=== PATIENT | male | born 1975 | race Caucasian/White ===

== ENCOUNTER 2020-04-11 11:36 | Observation (INO) | payer OTHER ==
[2020-04-11] MEDS ORDERED: Zofran 4 MG/2 ML VIAL IV ONE (12:01)
[2020-04-11] MEDS ORDERED: Hydromorphone 1 mg/ml Ampule IV ONE ×2 (12:01→13:31)
[2020-04-11] MEDS ORDERED: Sodium Chloride 0.9% 1000 ML 1,000 ML IV STA ×2 (12:01→13:31)
[2020-04-11] MEDS ORDERED: Zofran 4 MG/2 ML VIAL ONE ×2 (12:08→15:08)
[2020-04-11] MEDS ORDERED: Hydromorphone 1 mg/ml Ampule ONE ×2 (12:08→13:36)
[2020-04-11] MEDS ORDERED: Sodium Chloride 0.9% 1000 ML 1,000 ML ONE ×2 (12:09→13:36)
[2020-04-11 12:11] LABS: Absolute Neutrophil Ct (ANC) 13.33 (1.4-6.9); BASOPHIL % 0.2 % (0.0-0.4); Basophil (Absolute #) 0.04 (0-0.4); Eosinophil % 0.3 % (0.00-5.0); Eosinophil (Absolute #) 0.05 (0-0.5); Hematocrit 43.1 % (42-50); Hemoglobin 14.6 gm/dl (12.5-18.0); Lymphocyte (Absolute #) 2.61 (1.0-4.6); Lymphocytes % 14.8 % (24.0-44.0); Mean Cell Volume 90.5 fl (78-100); Mean Corpuscular Hemoglobin 30.7 pg (26-32); Mean Corpuscular Hgb Concent. 33.9 g/dl (32-36); Mean Platelet Volume 10.3 fl (7.5-11.0); Monocyte (Absolute #) 1.62 (0.0-1.3); Monocytes % 9.2 % (0.0-12.0); Neutrophil % 75.5 % (36.0-66.0); Platelet Count 242 K/mm3 (150-450); Red Blood Count 4.76 M/mm3 (4.1-5.6); Red Cell Distribution Width 13.8 % (11.5-14.0); White Blood Count 17.7 K/mm3 (4.0-10.5)
--- NOTE | 2020-04-11 12:12 | ERPHSYRPT ---
- History of Present Illness Time Seen by Provider: 04/11/20 11:55 Historian: patient, family Exam Limitations: no limitations Patient Subjective Stated Complaint: pt here for abd pain since sunday with nausea and vomiting,no fever Triage Nursing Assessment: pt alert, wearing face mask, resp easy, skin w/d/p, no edema, abd soft Physician History: This is a 45-year-old male whose had no prior abdominal surgeries and presents with a 2-day history of generalized abdominal pain associated nausea and vomiting. He denies diarrhea. He denies chest pain. He denies cough. He has no myalgias or arthralgias. He does feel some discomfort in the bilateral flanks. Patient states he is never had anything like this before. No other individuals in the family have similar symptoms Timing/Duration: day(s) (2), worse Quality: aching, cramping Abdominal Pain Onset Location: generalized abdomen Pain Radiation: no radiation Severity of Pain-Max: moderate Severity of Pain-Current: moderate Modifying Factors: Improves With: vomiting Associated Symptoms: loss of appetite, nausea, vomiting, No chest pain, No diarrhea, No fever/chills, No shortness of breath Previous symptoms: no prior history Allergies/Adverse Reactions: No Known Drug Allergies Allergy (Verified 04/11/20 11:49) Home Medications: No Home Meds [No Home Meds] 1 ea DAILY 02/06/12 [History] Hx Tetanus, Diphtheria Vaccination/Date Given: Yes (2008) Hx Influenza Vaccination/Date Given: No Hx Pneumococcal Vaccination/Date Given: No Immunizations Up to Date: Yes Travel Risk - International Travel Have you traveled outside of the country in past 3 weeks: No - Coronavirus Screening Are you exhibiting any of the following symptoms?: No Close contact with a COVID-19 positive Pt in past 14-21 Days: No - Review of Systems Constitutional: No Symptoms Eyes: No Symptoms Ears, Nose, & Throat: No Symptoms Respiratory: No Symptoms Cardiac: No Symptoms Abdominal/Gastrointestinal: Abdominal Pain (Generalized), Nausea, Vomiting Genitourinary Symptoms: No Symptoms Musculoskeletal: No Symptoms Skin: No Symptoms Neurological: No Symptoms Psychological: No Symptoms Endocrine: No Symptoms Hematologic/Lymphatic: No Symptoms Immunological/Allergic: No Symptoms All Other Systems: Reviewed and Negative - Past Medical History Pertinent Past Medical History: No Neurological History: No Pertinent History ENT History: No Pertinent History Cardiac History: No Pertinent History Respiratory History: No Pertinent History Endocrine Medical History: No Pertinent History Musculoskeletal History: No Pertinent History GI Medical History: No Pertinent History History: No Pertinent History Psycho-Social History: No Pertinent History Male Reproductive Disorders: No Pertinent History - Past Surgical History Past Surgical History: No Neuro Surgical History: No Pertinent History Cardiac: No Pertinent History Respiratory: No Pertinent History Gastrointestinal: No Pertinent History Genitourinary: No Pertinent History Musculoskeletal: No Pertinent History Male Surgical History: No Pertinent History - Social History Smoking Status: Current every day smoker Exposure to second hand smoke: Yes Drug Use: none Patient Lives Alone: No - Nursing Vital Signs Nursing Vital Signs: Initial Vital Signs Temperature 98.3 F 04/11/20 11:38 Pulse Rate 82 04/11/20 11:38 Respiratory Rate 18 04/11/20 11:38 Blood Pressure 108/72 04/11/20 11:38 O2 Sat by Pulse Oximetry 100 04/11/20 11:38 Pain Scale Pain Intensity 10 - Physical Exam General Appearance: moderate distress, alert, anxiety Eye Exam: PERRL/EOMI, eyes nml inspection Ears, Nose, Throat Exam: normal ENT inspection, moist mucous membranes Neck Exam: normal inspection, non-tender, supple, full range of motion Respiratory Exam: normal breath sounds, lungs clear, airway intact, No chest tenderness, No respiratory distress Cardiovascular Exam: regular rate/rhythm, normal heart sounds, normal peripheral pulses Gastrointestinal/Abdomen Exam: soft, normal bowel sounds, tenderness (Generalized), guarding Rectal Exam: not done Back Exam: normal inspection, normal range of motion, No CVA tenderness, No vertebral tenderness Extremity Exam: normal inspection, normal range of motion, pelvis stable Neurologic Exam: alert, oriented x 3, cooperative, 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 II-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 nml as tested, normal mood/affect, nml cerebellar function, nml station & gait, sensation nml Skin Exam: normal color, warm, dry Lymphatic Exam: No adenopathy SpO2 Interpretation: normal SpO2: 100 O2 Delivery: Room Air Ordered Tests: Active Orders 24 hr Category Date Time Status IV Insertion STAT Care 04/11/20 12:01 Active ABDOMEN AND PELVIS W/0 CONTRAS [CT] Stat Exams 04/11/20 12:11 Taken AMYLASE Stat Lab 04/11/20 12:01 Completed CBC W DIFF Stat Lab 04/11/20 12:01 Completed CMP Stat Lab 04/11/20 12:01 Completed LIPASE Stat Lab 04/11/20 12:01 Completed Lactic Acid Stat Lab 04/11/20 12:01 Completed UA W/RFX UR CULTURE Stat Lab 04/11/20 12:03 Completed Transfer Order Routine Transfer 04/11/20 Ordered Medication Summary Generic Name Dose Route Start Last Admin Trade Name Maira PRN Reason Stop Dose Admin Sodium Chloride 1,000 mls @ 999 mls/hr 04/11/20 13:31 Sodium Chloride 0.9% 1000 Ml IV 04/11/20 14:31 .Q1H1M STA Discontinued Medications Generic Name Dose Route Start Last Admin Trade Name Maira PRN Reason Stop Dose Admin Hydromorphone HCl 1 mg 04/11/20 12:01 04/11/20 12:10 Hydromorphone 1 Mg/Ml Ampule IV 04/11/20 12:02 1 mg STAT ONE Administration Hydromorphone HCl Confirm 04/11/20 12:08 Hydromorphone 1 Mg/Ml Ampule Administered 04/11/20 12:09 Dose 1 mg .ROUTE .STK-MED ONE Hydromorphone HCl 1 mg 04/11/20 13:31 Hydromorphone 1 Mg/Ml Ampule IV 04/11/20 13:32 STAT ONE Sodium Chloride 1,000 mls @ 999 mls/hr 04/11/20 12:01 04/11/20 12:09 Sodium Chloride 0.9% 1000 Ml IV 04/11/20 13:01 999 mls/hr .Q1H1M STA Administration Sodium Chloride Confirm 04/11/20 12:09 Sodium Chloride 0.9% 1000 Ml Administered 04/11/20 12:10 Dose 1,000 mls @ ud .ROUTE .STK-MED ONE Piperacillin Sod/Tazobactam 100 mls @ 200 mls/hr 04/11/20 13:04 04/11/20 13:22 Sod 3.375 gm/ Sodium Chloride IV 04/11/20 13:33 200 mls/hr STAT ONE Administration Sodium Chloride Confirm 04/11/20 13:18 Sodium Chloride 100ml Mini-Bag Plus Administered 04/11/20 13:19 Dose 100 mls @ ud IV .STK-MED ONE Ondansetron HCl 4 mg 04/11/20 12:01 04/11/20 12:10 Zofran 4 Mg/2 Ml Vial IV 04/11/20 12:02 4 mg STAT ONE Administration Ondansetron HCl Confirm 04/11/20 12:08 Zofran 4 Mg/2 Ml Vial Administered 04/11/20 12:09 Dose 4 mg .ROUTE .STK-MED ONE Piperacillin Sod/Tazobactam Sod Confirm 04/11/20 13:18 Zosyn 3.375 Gm Vial Administered 04/11/20 13:19 Dose 3.375 gm IV .STK-MED ONE Lab/Rad Data: Laboratory Result Diagrams 04/11/20 12:01 04/11/20 12:01 Laboratory Results 04/11/20 04/11/20 04/11/20 Range/Units 12:03 12:01 12:01 WBC (4.0-10.5) K/mm3 RBC (4.1-5.6) M/mm3 Hgb (12.5-18.0) gm/dl Hct (42-50) % MCV (78-100) fl MCH (26-32) pg MCHC (32-36) g/dl RDW (11.5-14.0) % Plt Count (150-450) K/mm3 MPV (7.5-11.0) fl Gran % (36.0-66.0) % Eos # (Auto) (0-0.5) Absolute Lymphs (auto) (1.0-4.6) Absolute Monos (auto) (0.0-1.3) Lymphocytes % (24.0-44.0) % Monocytes % (0.0-12.0) % Eosinophils % (0.00-5.0) % Basophils % (0.0-0.4) % Absolute Granulocytes (1.4-6.9) Basophils # (0-0.4) Sodium 140 (137-145) mmol/L Potassium 3.9 (3.5-5.1) mmol/L Chloride 106 (98-107) mmol/L Carbon Dioxide 27 (22-30) mmol/L Anion Gap 11.0 (5-15) MEQ/L BUN 13 (9-20) mg/dL Creatinine 0.88 (0.66-1.25) mg/dL Estimated GFR > 60.0 ML/MIN Glucose 116 H (74-106) mg/dL Lactic Acid 1.2 (0.4-2.0) Calcium 9.5 (8.4-10.2) mg/dL Total Bilirubin 0.50 (0.2-1.3) mg/dL AST 36 (17-59) U/L ALT 22 (0-50) U/L Alkaline Phosphatase 98 (38-126) U/L Serum Total Protein 7.3 (6.3-8.2) g/dL Albumin 4.3 (3.5-5.0) g/dL Amylase 72 (30-110) U/L Lipase 114 (23-300) U/L Urine Color YELLOW (YELLOW) Urine Appearance CLEAR (CLEAR) Urine pH 5.0 (5-6) Ur Specific [place] 1.027 (1.005-1.025) Urine Protein NEGATIVE (Negative) Urine Ketones NEGATIVE (NEGATIVE) Urine Blood NEGATIVE (0-5) [place]/ul Urine Nitrite NEGATIVE (NEGATIVE) Urine Bilirubin NEGATIVE (NEGATIVE) Urine Urobilinogen NEGATIVE (0-1) mg/dL Ur Leukocyte Esterase NEGATIVE (NEGATIVE) Urine WBC (Auto) 0-2 (0-5) /HPF Urine RBC (Auto) 0-2 (0-2) /HPF U Hyaline Cast (Auto) 0-2 (0-2) /LPF U Epithel Cells (Auto) NONE (FEW) /HPF Urine Bacteria (Auto) NONE (NEGATIVE) /HPF Urine Mucus (Auto) SLIGHT (NEGATIVE) /HPF Urine Culture Reflexed NO (NO) Urine Glucose NEGATIVE (NEGATIVE) mg/dL 04/11/20 Range/Units 12:01 WBC 17.7 H (4.0-10.5) K/mm3 RBC 4.76 (4.1-5.6) M/mm3 Hgb 14.6 (12.5-18.0) gm/dl Hct 43.1 (42-50) % MCV 90.5 (78-100) fl MCH 30.7 (26-32) pg MCHC 33.9 (32-36) g/dl RDW 13.8 (11.5-14.0) % Plt Count 242 (150-450) K/mm3 MPV 10.3 (7.5-11.0) fl Gran % 75.5 H (36.0-66.0) % Eos # (Auto) 0.05 (0-0.5) Absolute Lymphs (auto) 2.61 (1.0-4.6) Absolute Monos (auto) 1.62 H (0.0-1.3) Lymphocytes % 14.8 L (24.0-44.0) % Monocytes % 9.2 (0.0-12.0) % Eosinophils % 0.3 (0.00-5.0) % Basophils % 0.2 (0.0-0.4) % Absolute Granulocytes 13.33 H (1.4-6.9) Basophils # 0.04 (0-0.4) Sodium (137-145) mmol/L Potassium (3.5-5.1) mmol/L Chloride (98-107) mmol/L Carbon Dioxide (22-30) mmol/L Anion Gap (5-15) MEQ/L BUN (9-20) mg/dL Creatinine (0.66-1.25) mg/dL Estimated GFR ML/MIN Glucose (74-106) mg/dL Lactic Acid (0.4-2.0) Calcium (8.4-10.2) mg/dL Total Bilirubin (0.2-1.3) mg/dL AST (17-59) U/L ALT (0-50) U/L Alkaline Phosphatase (38-126) U/L Serum Total Protein (6.3-8.2) g/dL Albumin (3.5-5.0) g/dL Amylase (30-110) U/L Lipase (23-300) U/L Urine Color (YELLOW) Urine Appearance (CLEAR) Urine pH (5-6) Ur Specific [place] (1.005-1.025) Urine Protein (Negative) Urine Ketones (NEGATIVE) Urine Blood (0-5) [place]/ul Urine Nitrite (NEGATIVE) Urine Bilirubin (NEGATIVE) Urine Urobilinogen (0-1) mg/dL Ur Leukocyte Esterase (NEGATIVE) Urine WBC (Auto) (0-5) /HPF Urine RBC (Auto) (0-2) /HPF U Hyaline Cast (Auto) (0-2) /LPF U Epithel Cells (Auto) (FEW) /HPF Urine Bacteria (Auto) (NEGATIVE) /HPF Urine Mucus (Auto) (NEGATIVE) /HPF Urine Culture Reflexed (NO) Urine Glucose (NEGATIVE) mg/dL - Progress Progress Note: 04/11/20 13:03 CAT scan of the abdomen and pelvis show findings are consistent with early perforated acute appendicitis. There is no drainable collection of fluid or abscess present. 04/11/20 13:[address] Fan Padilla, the general surgeon on-call for the hospital. I reviewed the patient history and CAT scan findings with him. I reviewed the clinical condition of the patient as well as laboratory data. We will admit the patient to the floor and Dr. Padilla, who is operating at this time at a nearby facility, will return to [facility] to operate on this patient Counseled pt/family regarding: lab results, diagnosis, rad results - Departure Departure Disposition: In-patient Admission Clinical Impression: Acute appendicitis Condition: Stable Critical Care Time: No Referrals: CAROLE HARMAN [Primary Care Provider] -
[2020-04-11 12:18] LABS: Appearance CLEAR (CLEAR); Bilirubin NEGATIVE (NEGATIVE); Blood NEGATIVE Ery/ul (0-5); Glucose NEGATIVE (NEGATIVE); Hyaline Casts 0-2 /LPF (0-2); Ketones NEGATIVE (NEGATIVE); Leukocyte Esterase NEGATIVE (NEGATIVE); Mucus SLIGHT /HPF (NEGATIVE); Nitrite NEGATIVE (NEGATIVE); Protein,Urine Dip NEGATIVE (Negative); RBC 0-2 /HPF (0-2); Specific Gravity 1.027 (1.005-1.025); Urobilinogen NEGATIVE mg/dL (0-1); WBC 0-2 /HPF (0-5)
[2020-04-11 12:26] LABS: ALBUMIN 4.3 g/dL (3.5-5.0); ALKALINE PHOSPHATASE 98 U/L (38-126); AMYLASE 72 U/L (30-110); BLOOD UREA NITROGEN 13 mg/dL (9-20); CHLORIDE 106 mmol/L (98-107); Calcium 9.5 mg/dL (8.4-10.2); Carbon Dioxide 27 mmol/L (22-30); Creatinine 1 0.88 mg/dL (0.66-1.25); Glucose 116 mg/dL (74-106); LIPASE 114 U/L (23-300); Potassium 3.9 mmol/L (3.5-5.1); SGOT/AST 36 U/L (17-59); SGPT/ALT 22 U/L (0-50); SODIUM 140 mmol/L (137-145); Total Protein 7.3 g/dL (6.3-8.2)
[2020-04-11] MEDS ORDERED: Zosyn 3.375 GM Vial 3.375 GM in Sodium Chloride 100ML MINI-BAG PLUS 100 ML IV ONE (13:04)
[2020-04-11] MEDS ORDERED: Zosyn 3.375 GM Vial IV ONE (13:18)
[2020-04-11] MEDS ORDERED: Sodium Chloride 100ML MINI-BAG PLUS 100 ML IV ONE (13:18)
[2020-04-11 13:42] LABS: Slide Review 1 YES
[2020-04-11] MEDS ORDERED: DILAUDID 2 MG INJECTION IV PRN (13:52)
[2020-04-11] MEDS ORDERED: Zofran 4 MG/2 ML VIAL IV PRN (13:52)
[2020-04-11] MEDS ORDERED: FEVERALL 650 MG PR PRN (13:52)
[2020-04-11] MEDS ORDERED: Sodium Chloride 0.9% 1000 ML 1,000 ML IV SCH (13:52)
[2020-04-11] MEDS ORDERED: MEFOXIN 2 GM PREMIX** 2 GM/50 ML ML IV SCH (15:00)
[2020-04-11] MEDS ORDERED: BRIDION 200MG/2ML IV ONE (15:08)
[2020-04-11] MEDS ORDERED: Decadron 4 MG INJ ONE (15:08)
[2020-04-11] MEDS ORDERED: Quelicin Fliptop 200 MG/10 ML ONE (15:08)
[2020-04-11] MEDS ORDERED: SUBLIMAZE 100 MCG/2 ML ONE ×2 (15:08→16:09)
[2020-04-11] MEDS ORDERED: DIPRIVAN 200 MG/20 ML IV ONE (15:08)
[2020-04-11] MEDS ORDERED: Xylocaine-Mpf 2% 5 Ml Vial ONE (15:08)
[2020-04-11] MEDS ORDERED: Zemuron 100 MG/10 ML ONE (15:08)
[2020-04-11] MEDS ORDERED: TORAdol 30 mg Injection ONE (15:08)
[2020-04-11] MEDS ORDERED: Ketamine HCl 50 MG/ML ONE (15:09)
[2020-04-11] MEDS ORDERED: Lactated Ringers 1,000 ML IV ONE (15:47)
[2020-04-11] MEDS ORDERED: Sensorcaine 0.25% 10 ML ONE (15:47)
[2020-04-11] MEDS ORDERED: PHENYLEPHRINE HCL ONE (16:10)
[2020-04-11] MEDS ORDERED: DILAUDID 2 MG INJECTION ONE (16:13)
[2020-04-11 17:25] LABS: Appearance CLEAR (CLEAR); Bilirubin NEGATIVE (NEGATIVE); Blood SMALL Ery/ul (0-5); Glucose NEGATIVE (NEGATIVE); Ketones TRACE (NEGATIVE); Leukocyte Esterase NEGATIVE (NEGATIVE); Mucus SLIGHT /HPF (NEGATIVE); Nitrite NEGATIVE (NEGATIVE); Protein,Urine Dip NEGATIVE (Negative); RBC 0-2 /HPF (0-2); Specific Gravity 1.024 (1.005-1.025); Urobilinogen NEGATIVE mg/dL (0-1); WBC 0-2 /HPF (0-5)
[2020-04-11] MEDS: D5W/0.45NS W/ 20mEq KCl 1000 ML 1,000 ML IV SCH (17:25)
[2020-04-11 17:28] LABS: Bacteria NONE SEEN /HPF (NEGATIVE)
[2020-04-11] MEDS ORDERED: Zosyn 3.375 GM Vial 3.375 GM in Sodium Chloride 100ML MINI-BAG PLUS 100 ML IV SCH (18:00)
--- NOTE | 2020-04-11 22:02 | XRAY ---
Indication: Diffuse abdominal pain. Nausea and vomiting. Multiple contiguous axial images obtained through the abdomen and pelvis without contrast as ordered. Comparison: None. Lung bases are clear. Heart is not enlarged.. Noncontrasted stomach and bowel loops appear nonobstructed. Appendix is prominent up to 9-10 mm with periappendiceal stranding favoring appendicitis. No free fluid/air. Radiopacity in the right hemicolon presumed ingested medication/bismuth. Mild diffuse scattered colonic fecal debris. Nonobstructing right renal punctate calculus. Remaining liver, gallbladder, pancreas, spleen, adrenal glands, kidneys, ureters, bladder, and aorta appear unremarkable for noncontrasted exam. Osseous structures intact again with mild lumbosacral junction degenerative changes. Impression: 1. CT features as detailed favoring acute appendicitis. No complications. 2. Incidental fecal stasis and nonobstructing right renal microcalculus. Comment: Preliminary interpretation was made by [facility]. No critical discrepancy.
[2020-04-11] MEDS: MORPHINE SULFATE 2 MG INJ IV PRN (23:21)
[2020-04-11] MEDS: MEFOXIN 1 Gm/ D5W 50 Ml** 1 G/50 ML ML IV SCH (23:40)
[2020-04-12 04:40] LABS: Hematocrit 39.5 % (42-50); Hemoglobin 13.2 gm/dl (12.5-18.0); Mean Cell Volume 91.4 fl (78-100); Mean Corpuscular Hemoglobin 30.6 pg (26-32); Mean Corpuscular Hgb Concent. 33.4 g/dl (32-36); Mean Platelet Volume 10.4 fl (7.5-11.0); Platelet Count 204 K/mm3 (150-450); Red Blood Count 4.32 M/mm3 (4.1-5.6); Red Cell Distribution Width 13.9 % (11.5-14.0); White Blood Count 21.8 K/mm3 (4.0-10.5)
[2020-04-12] MEDS ORDERED: MORPHINE SULFATE 2 MG INJ ONE (05:12)
[2020-04-12] MEDS: MORPHINE SULFATE 2 MG INJ IV PRN (05:21)
[2020-04-12] MEDS: MEFOXIN 1 Gm/ D5W 50 Ml** 1 G/50 ML ML IV SCH ×3 (05:21→21:16)
[2020-04-12] MEDS ORDERED: TYLENOL 325 MG PO PRN (06:54)
[2020-04-12] MEDS: D5W/0.45NS W/ 20mEq KCl 1000 ML 1,000 ML IV SCH ×2 (08:17→21:15)
[2020-04-12] MEDS: ENOXAPARIN SODIUM SQ SCH (09:19)
[2020-04-12] MEDS: NORCO 5/325 MG PO PRN ×3 (09:22→20:07)
--- NOTE | 2020-04-12 13:31 | HP ---
HISTORY OF PRESENT ILLNESS: The patient has 48 hour history of right lower quadrant pain starting fairly central and progressing right lower quadrant. It is unrelenting. He presented to the emergency room. White count elevated. Clinical symptoms consistent with appendicitis. CT scan positive with probable focal rupture. He was seen in the hallway. Procedure discussed and he wished to proceed PAST MEDICAL HISTORY: ALLERGIES: NONE. MEDICATIONS: None. PAST SURGICAL HISTORY: None. SOCIAL HISTORY: Negative. FAMILY HISTORY: Negative. REVIEW OF SYSTEMS: CVS: Negative. PULMONARY: Negative. GI: Otherwise negative. : Negative. PHYSICAL EXAMINATION: A slender male. VITAL SIGNS: Normal. CHEST: Clear. COR: Regular. ABDOMEN: Mild distention and tender on the right side fairly diffusely. IMPRESSION: Acute appendicitis possible rupture. PLAN: Laparoscopic appendectomy.
--- NOTE | 2020-04-12 13:52 | OP ---
SURGERY DATE/TIME: 04/11/2020 1519 PREOPERATIVE DIAGNOSIS: Acute appendicitis with rupture. POSTOPERATIVE DIAGNOSIS: Acute appendicitis with rupture and focal abscess. PROCEDURE: Laparoscopic appendectomy and evacuation abscess. SURGEON: Jace Padilla M.D. ANESTHESIA: General. COMPLICATIONS: None. CONDITION: Stable. INDICATION: A patient with ruptured appendix. DESCRIPTION OF PROCEDURE: Taken to surgery. General anesthetic. Routine prep and drape. Time out performed. Veress needle inserted. Opening pressure of 1, insufflating pressure 14. A 12 port was placed and two - 5's laterally. Good visualization. It was ruptured posteriorly towards the common iliac artery. It was mobilized. The base was taken at the cecum with 2.5 vascular cartridge. Mesoappendix was taken in a vertical direction with 2.5 vascular cartridge. Appendix placed in condom bag and removed. There were four appendicoliths that were loose in the posterior abscess cavity which were picked up with stone scoop. The field was irrigated and was dry. A 10 mm Zhou-[place] drain laid along the posterior gutter pelvis. It was secured with 2-0 PDS. Hole closure device was used at 12 port. Field was dry. CO2 exsufflated. Skin closed with 4-0 Vicryl, Steri-Strips. The patient tolerated the procedure satisfactorily.
[2020-04-13] MEDS: NORCO 5/325 MG PO PRN ×2 (04:00→14:28)
[2020-04-13] MEDS: MORPHINE SULFATE 2 MG INJ IV PRN (04:51)
[2020-04-13] MEDS: MEFOXIN 1 Gm/ D5W 50 Ml** 1 G/50 ML ML IV SCH ×2 (04:52→14:25)
[2020-04-13 05:03] LABS: BASOPHIL % 0.2 % (0.0-0.4); Basophil (Absolute #) 0.03 (0-0.4); Eosinophil % 0.2 % (0.00-5.0); Eosinophil (Absolute #) 0.02 (0-0.5); Hematocrit 40.7 % (42-50); Hemoglobin 13.5 gm/dl (12.5-18.0); Lymphocyte (Absolute #) 1.08 (1.0-4.6); Lymphocytes % 8.9 % (24.0-44.0); Mean Cell Volume 92.9 fl (78-100); Mean Corpuscular Hemoglobin 30.8 pg (26-32); Mean Corpuscular Hgb Concent. 33.2 g/dl (32-36); Mean Platelet Volume 10.3 fl (7.5-11.0); Monocyte (Absolute #) 1.43 (0.0-1.3); Monocytes % 11.8 % (0.0-12.0); Neutrophil % 78.9 % (36.0-66.0); Platelet Count 190 K/mm3 (150-450); Red Blood Count 4.38 M/mm3 (4.1-5.6); Red Cell Distribution Width 14.2 % (11.5-14.0); White Blood Count 12.2 K/mm3 (4.0-10.5)
[2020-04-13 07:33] VITALS: PULSE 85
[2020-04-13] MEDS: ENOXAPARIN SODIUM SQ SCH (09:57)
[2020-04-13] MEDS: D5W/0.45NS W/ 20mEq KCl 1000 ML 1,000 ML IV SCH (10:19)
[2020-04-13 12:05] VITALS: BP 111/63; O2SAT 93
== END 2020-04-13 16:20 | disposition home or self-care (01) ==
LOC: ED 11:36 → MED SURG 13:45
PROVIDERS: ADMIT Family Medicine; ATTEND Family Medicine
DX: K35.33 Acute appendicitis with perforation, localized peritonitis, and gangrene, with abscess (principal)
CPT/HCPCS: 36000; 36415; 44970; 74176; 80053; 81001; 82150; 83605; 83690; 85025; 85027; 87086; 96365; 96374; 96375; 96376; 99285; G0378; 99140; J0330; J0694; J1100; J1170; J1650; J1885; J2270; J2370; J2405; J2704; J3010; A9270-GY